=== PATIENT | female | born 1970 | race Native Hawaiian/Other Pacific Islander ===

== ENCOUNTER 2016-11-23 12:41 | Emergency (ER) | payer OTHER ==
[~2016-11-23] VITALS: Ht 157.5 cm; Wt 86.2 kg
[2016-11-23 15:08] VITALS: BP 121/82; TEMP 97.6
== END 2016-11-23 15:08 | disposition home or self-care (01) ==
LOC: ED 12:41
DX: L27.0 Generalized skin eruption due to drugs and medicaments taken internally (principal); T37.0X5A Adverse effect of sulfonamides, initial encounter; Y92.098 Other place in other non-institutional residence as the place of occurrence of the external cause
CPT/HCPCS: 96361; 96374; 96375; 99284; J0171; J1200; J2930; J3490

== ENCOUNTER 2018-09-20 14:52 | Emergency (ER) | payer OTHER ==
[~2018-09-20] VITALS: Ht 157.5 cm; Wt 81.6 kg
[2018-09-20 15:06] VITALS: TEMP 99.9
[2018-09-20 16:31] VITALS: BP 118/80
== END 2018-09-20 16:39 | disposition home or self-care (01) ==
LOC: ED 14:52
DX: J01.90 Acute sinusitis, unspecified (principal); S16.1XXA Strain of muscle, fascia and tendon at neck level, initial encounter
CPT/HCPCS: 99282

== ENCOUNTER 2019-06-24 14:46 | Emergency (ER) | payer OTHER ==
[~2019-06-24] VITALS: Ht 157.5 cm; Wt 81.6 kg
[2019-06-24 14:53] VITALS: BP 119/78; TEMP 98.8
[2019-06-24] MEDS ORDERED: JANUMET1 TA1 PO (15:08)
[2019-06-24] MEDS ORDERED: NEURONTIN 100M100 MG PO (15:09)
[2019-06-24] MEDS ORDERED: CRESTOR20 MG PO (15:09)
[2019-06-24] MEDS ORDERED: GABA300C2 PO (15:10)
[2019-06-24] MEDS ORDERED: GLYBURIDE2.5 M1 PO (15:11)
[2019-06-24] MEDS ORDERED: LISITAB PO (15:11)
[2019-06-24] MEDS ORDERED: TRAZODONE HYDRO50 MG PO (15:12)
[2019-06-24] MEDS ORDERED: ALBUTEROL2 MG PO (15:12)
[2019-06-24 15:35] LABS: PLATELET COUNT 273 K/uL (152-353)
[2019-06-24 15:44] LABS: POTASSIUM 3.8 mmol/L (3.6-5.2)
[2019-06-24] MEDS ORDERED: NOVOLOG100 UNIT/M SC (16:21)
[2019-06-25] MEDS ORDERED: CLINDAMYCIN HC150 MG PO (15:44)
== END 2019-06-24 17:06 | disposition still patient (30) ==
LOC: ED 14:46
PROVIDERS: Emergency Medicine
DX: E13.621 Other specified diabetes mellitus with foot ulcer (principal); L03.032 Cellulitis of left toe
CPT/HCPCS: 80053; 81002; 83605; 85027; 87040; 96360; 96365; 96372; 99284; J0696; J1815

== ENCOUNTER 2019-06-24 16:30 | Observation (INO) | payer OTHER ==
[~2019-06-24] VITALS: Ht 160 cm; Wt 84.9 kg
[~2019-06-24 16:30] MED LIST: ALBUTEROL2 MG PO; CRESTOR20 MG PO; GABA300C2 PO; GLYBURIDE2.5 M1 PO; JANUMET1 TA1 PO; LISITAB PO; NEURONTIN 100M100 MG PO; NOVOLOG100 UNIT/M SC; TRAZODONE HYDRO50 MG PO
[2019-06-24 17:15] VITALS: BP 127/79; TEMP 98.1; Ht 160 cm; Wt 84.9 kg
[2019-06-24 20:00] VITALS: BP 113/74; TEMP 98.3
[2019-06-25] VITALS: BP 116/73; TEMP 99.2
[2019-06-25 04:00] VITALS: BP 121/75; TEMP 98.6
[2019-06-25 05:43] LABS: PLATELET COUNT 237 K/uL (152-353)
[2019-06-25 05:50] LABS: POTASSIUM 3.8 mmol/L (3.6-5.2)
[2019-06-25 08:00] VITALS: BP 122/75; TEMP 98.1
[2019-06-25 12:00] VITALS: BP 99/67; TEMP 98.2
[2019-06-25] MEDS ORDERED: CLINDAMYCIN HC150 MG PO (15:44)
[2019-06-25 16:00] VITALS: BP 107/63; TEMP 97.9
== END 2019-06-25 21:03 | disposition home or self-care (01) ==
LOC: MED/SURG 16:30
PROVIDERS: Family Medicine; ADMIT Emergency Medicine
DX: L03.032 Cellulitis of left toe (principal); E11.65 Type 2 diabetes mellitus with hyperglycemia; E87.1 Hypo-osmolality and hyponatremia; E87.8 Other disorders of electrolyte and fluid balance, not elsewhere classified; E86.0 Dehydration; D64.89 Other specified anemias; E87.2 Acidosis; E11.51 Type 2 diabetes mellitus with diabetic peripheral angiopathy without gangrene; E78.00 Pure hypercholesterolemia, unspecified; Z91.19 Patient's noncompliance with other medical treatment and regimen
CPT/HCPCS: 36415; 80053; 82948; 83036; 83605; 85027; 87040; 96365; 96366; 96372; 99220; G0378; G0379; J0696; J1815

== ENCOUNTER 2019-08-31 20:03 | Emergency (ER) | payer OTHER ==
[~2019-08-31] VITALS: Ht 160 cm; Wt 84.4 kg
[~2019-08-31 20:03] MED LIST changes: +CLINDAMYCIN HC150 MG PO
[2019-08-31 21:06] LABS: PLATELET COUNT 277 K/uL (152-353)
[2019-08-31 21:11] LABS: POTASSIUM 3.5 mmol/L (3.6-5.2); SODIUM 133 mmol/L (136-145)
[2019-08-31 21:35] LABS: PARTIAL THROMBOPLASTIN TIME 24.5 SECONDS (24.5-33.6)
[2019-09-01 01:00] VITALS: BP 131/80; TEMP 98.3
== END 2019-09-01 01:00 | disposition home or self-care (01) ==
LOC: ED 20:03
PROVIDERS: Student in an Organized Health Care Education/Training Program
DX: J40 Bronchitis, not specified as acute or chronic (principal); R00.0 Tachycardia, unspecified; E83.42 Hypomagnesemia
CPT/HCPCS: 80048; 81000; 81025; 83735; 83880; 84443; 84484; 85027; 85610; 85730; 87502; 93005; 96360; 96365; 96375; 99284; J2765; J3475

== ENCOUNTER 2021-01-20 16:50 | Emergency (ER) | payer OTHER ==
[~2021-01-20] VITALS: Ht 160 cm; Wt 84.4 kg
[2021-01-20 18:19] LABS: POTASSIUM 4.2 mmol/L (3.6-5.2)
[2021-01-20 18:20] LABS: PLATELET COUNT 274 K/uL (152-353)
[2021-01-20 22:00] VITALS: BP 135/88; TEMP 97.5
== END 2021-01-20 22:00 | disposition home or self-care (01) ==
LOC: ED 16:50
PROVIDERS: Family Medicine
DX: E11.65 Type 2 diabetes mellitus with hyperglycemia (principal); R11.2 Nausea with vomiting, unspecified
CPT/HCPCS: 36415; 80053; 81000; 81002; 82948; 85027; 96360; 96375; 99284; J2405

== ENCOUNTER 2021-09-21 17:17 | Emergency (ER) | payer OTHER ==
[~2021-09-21] VITALS: Ht 160 cm; Wt 77.1 kg
[2021-09-21 17:53] LABS: PLATELET COUNT 241 K/uL (152-353)
[2021-09-21 17:57] LABS: POTASSIUM 3.6 mmol/L (3.6-5.2)
[2021-09-21 19:40] VITALS: BP 123/78; TEMP 98.6
== END 2021-09-21 19:40 | disposition home or self-care (01) ==
LOC: ED 17:17
PROVIDERS: Emergency Medicine
DX: R09.1 Pleurisy (principal); E11.65 Type 2 diabetes mellitus with hyperglycemia; Z79.4 Long term (current) use of insulin
CPT/HCPCS: 36415; 80048; 84484; 85027; 85379; 96374; 99284; J1885

== ENCOUNTER 2022-02-12 17:28 | Inpatient (IN) | payer OTHER ==
[~2022-02-12] VITALS: Ht 157.5 cm; Wt 76.7 kg
[~2022-02-12 17:28] MED LIST changes: +CARV3.12 PO; +LIPITOR20 MG PO; +MONTELUKAST SOD10 MG PO; +SYNJARDY 12.5-11 TAB PO
[2022-02-12 17:30] VITALS: TEMP 100.1
[2022-02-12 19:45] LABS: PLATELET COUNT 361 K/uL (152-353)
[2022-02-12 19:51] LABS: POTASSIUM 3.7 mmol/L (3.6-5.2)
[2022-02-12 21:55] VITALS: BP 134/86
[2022-02-12 22:15] VITALS: BP 138/86
[2022-02-12 22:45] VITALS: BP 128/78
[2022-02-12 23:00] VITALS: BP 123/80
[2022-02-13] VITALS (7 sets, daily range): BP systolic 91–123; BP diastolic 57–76; TEMP 97.7–100.5; Ht 157.5 cm; Wt 76.7 kg
[2022-02-13 06:10] LABS: PLATELET COUNT 254 K/uL (152-353)
[2022-02-13 06:30] LABS: POTASSIUM 2.9 mmol/L (3.6-5.2)
[2022-02-13] MEDS ORDERED: LIPITOR40 MG PO (10:57)
[2022-02-13] MEDS ORDERED: GLYBURIDE 5 MG PO (10:58)
[2022-02-13] MEDS ORDERED: OMEPRAZOLE20 M2 PO (10:59)
[2022-02-13] MEDS ORDERED: IBUPROFEN200 M1 PO (11:00)
[2022-02-13] MEDS ORDERED: ANORO ELLIPTA 61 AER INH (11:01)
[2022-02-13] MEDS ORDERED: BENADRYL ALLERG25 MG PO (11:02)
[2022-02-13] MEDS ORDERED: NOVOLOG MIX 70/30 (11:04)
[2022-02-13] MEDS ORDERED: TRULICITY1.5 MG/0.5 SC (11:05)
[2022-02-13] MEDS ORDERED: ASA LOW DOSE81 MG PO (11:06)
[2022-02-14] VITALS: BP 107/59; TEMP 99.8
[2022-02-14 04:00] VITALS: BP 122/63; TEMP 99.2
[2022-02-14 07:59] LABS: POTASSIUM 3.1 mmol/L (3.6-5.2)
[2022-02-14 08:00] VITALS: BP 125/77; TEMP 99.3
[2022-02-14 08:04] LABS: PLATELET COUNT 282 K/uL (152-353)
[2022-02-14 12:00] VITALS: BP 110/67; TEMP 98.6
[2022-02-14 16:00] VITALS: BP 180/73; TEMP 97.9
[2022-02-14 20:00] VITALS: BP 140/87; TEMP 97.9
[2022-02-15] VITALS: BP 106/65; TEMP 98.9
[2022-02-15 08:00] VITALS: BP 101/60; TEMP 98.1
[2022-02-15 12:00] VITALS: BP 106/67; TEMP 97.9
[2022-02-15 16:00] VITALS: BP 116/74; TEMP 98.4
[2022-02-15 20:00] VITALS: BP 117/78; TEMP 97.9
[2022-02-16] VITALS: BP 133/75; TEMP 99
[2022-02-16 05:25] LABS: POTASSIUM 3.5 mmol/L (3.6-5.2)
[2022-02-16 08:00] VITALS: BP 122/88; TEMP 98.4
[2022-02-16 12:00] VITALS: BP 94/63; TEMP 97.8
[2022-02-16] MEDS ORDERED: CLINDAMYCIN HY150 MG PO (13:37)
[2022-02-16] MEDS ORDERED: CEPH250C22 PO (13:38)
[2022-02-16] MEDS ORDERED: ACIDOPHILUS LAC1 CAP PO (13:42)
== END 2022-02-16 15:15 | disposition home or self-care (01) | DRG 603 ==
LOC: ED 17:28 → MED/SURG 20:22
PROVIDERS: Internal Medicine; ADMIT Emergency Medicine Emergency Medical Services; ATTEND Internal Medicine
DX: L03.031 Cellulitis of right toe (principal); L03.115 Cellulitis of right lower limb; B95.7 Other staphylococcus as the cause of diseases classified elsewhere; E78.49 Other hyperlipidemia; E11.42 Type 2 diabetes mellitus with diabetic polyneuropathy; E11.65 Type 2 diabetes mellitus with hyperglycemia; D64.89 Other specified anemias; J45.998 Other asthma; I10 Essential (primary) hypertension
CPT/HCPCS: 36415; 80048; 80053; 80202; 81002; 82607; 82728; 83540; 83550; 83605; 85027; 85610; 85652; 86140; 87040; 87070; 87077; 87185; 87186; 87205; 87635; 99283; A9576; J1650; J1815; J2270; J2405; J3370; U0003

== ENCOUNTER 2022-04-17 16:35 | Outpatient (CLI) | payer OTHER ==
[~2022-04-17 16:35] MED LIST changes: +ACIDOPHILUS LAC1 CAP PO; +ANORO ELLIPTA 61 AER INH; +ASA LOW DOSE81 MG PO; +BENADRYL ALLERG25 MG PO; +CEPH250C22 PO; +CLINDAMYCIN HY150 MG PO; +GLYBURIDE 5 MG PO; +IBUPROFEN200 M1 PO; +LIPITOR40 MG PO; +NOVOLOG MIX 70/30; +OMEPRAZOLE20 M2 PO; +TRULICITY1.5 MG/0.5 SC
== END 2022-04-17 19:02 | disposition home or self-care (01) ==
LOC: RAD 16:35
PROVIDERS: ATTEND Nurse Practitioner Family
DX: L03.031 Cellulitis of right toe (principal)

== ENCOUNTER 2022-08-03 15:07 | Outpatient (CLI) | payer OTHER | END 2022-08-03 19:26 | disposition home or self-care (01) | LOC: MRI 15:07 | PROVIDERS: ATTEND Internal Medicine Endocrinology, Diabetes & Metabolism | DX: M86.9 Osteomyelitis, unspecified (principal); M25.50 Pain in unspecified joint | CPT/HCPCS: 82565; 84520 ==